=== PATIENT | female | born 1975 | race American Indian/Alaskan Native ===

== ENCOUNTER 2017-05-25 14:39 | Emergency (ER) | payer OTHER ==
[2017-05-25] MEDS ORDERED: MOTRIN PO ONE (18:43)
[2017-05-25] MEDS ORDERED: MOTRIN ONE (18:43)
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
[2017-05-25 20:59] VITALS: BP 143/89
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
== END 2017-05-25 20:57 | disposition home or self-care (01) ==
LOC: ED 14:39
DX: M79.1 Myalgia (principal); M25.511 Pain in right shoulder; M25.512 Pain in left shoulder; M54.5 Low back pain; I10 Essential (primary) hypertension
CPT/HCPCS: 72040

== ENCOUNTER 2021-02-23 08:06 | Emergency (ER) | payer SELFPAY ==
--- NOTE | 2021-02-23 12:19 | Emergency Department Report ---
- General Chief Complaint: Sore Throat Stated Complaint: SEVERE SORE THROAT Time Seen by Provider: 02/23/21 11:25 Source: patient Mode of arrival: Ambulatory Limitations: No Limitations - History of Present Illness Initial Comments: Patient is a 45-year-old female presents emergency room with complaints of a sore throat that began 2 days ago. She has associated ear pressure and dry cough. She denies any fever, vomiting, diarrhea, shortness of breath, chest pain. She has been fully vaccinated for COVID-19. She denies any known sick contacts or recent travel. Past medical history of hypertension. Allergy to codeine. - Related Data Home Medications Medication Instructions Recorded Confirmed Last Taken ALPRAZolam [Xanax] 0.5 mg PO HS 05/13/13 09/15/19 Unknown Ergocalciferol [Vitamin D2] 5,000 unit PO DAILY 09/15/19 09/15/19 Unknown Ferrous Sulfate [Feosol 325 MG tab] 325 mg PO DAILY 09/15/19 09/15/19 Unknown Vilazodone HCl [Viibryd] 40 mg PO DAILY 09/15/19 09/15/19 Unknown hydrALAZINE [Apresoline] 25 mg PO DAILY 09/15/19 09/15/19 Unknown hydroCHLOROthiazide [HCTZ] 25 mg PO DAILY 09/15/19 09/15/19 Unknown Previous Rx's Medication Instructions Recorded Last Taken Type Benzonatate [Tessalon Perles] 100 mg PO Q8HR PRN #12 capsule 02/23/21 Unknown Rx Nystas/Diphen/Xyl Visc/Mylanta 30 ml MM Q4H PRN #300 ml 02/23/21 Unknown Rx [Magic Mouthwash] guaiFENesin ER [Mucinex ER] 600 mg PO Q12H #14 tablet.er 02/23/21 Unknown Rx Allergies Allergy/AdvReac Type Severity Reaction Status Date / Time codeine Allergy Hallucinati Verified 09/15/19 17:09 ons ED Review of Systems ROS: Stated complaint: SEVERE SORE THROAT Other details as noted in HPI Comment: All other systems reviewed and negative ED Past Medical Hx - Past Medical History Hx Hypertension: Yes (x 2yrs) Hx GERD: Yes Hx Sickle Cell Disease: Yes (Trait only) Hx Psychiatric Treatment: Yes (anxiety,depression) - Social History Smoking Status: Never Smoker - Medications Home Medications: Home Medications Medication Instructions Recorded Confirmed Last Taken Type ALPRAZolam [Xanax] 0.5 mg PO HS 05/13/13 09/15/19 Unknown History Ergocalciferol [Vitamin D2] 5,000 unit PO DAILY 09/15/19 09/15/19 Unknown History Ferrous Sulfate [Feosol 325 MG tab] 325 mg PO DAILY 09/15/19 09/15/19 Unknown History Vilazodone HCl [Viibryd] 40 mg PO DAILY 09/15/19 09/15/19 Unknown History hydrALAZINE [Apresoline] 25 mg PO DAILY 09/15/19 09/15/19 Unknown History hydroCHLOROthiazide [HCTZ] 25 mg PO DAILY 09/15/19 09/15/19 Unknown History Benzonatate [Tessalon Perles] 100 mg PO Q8HR PRN #12 capsule 02/23/21 Unknown Rx Nystas/Diphen/Xyl Visc/Mylanta 30 ml MM Q4H PRN #300 ml 02/23/21 Unknown Rx [Magic Mouthwash] guaiFENesin ER [Mucinex ER] 600 mg PO Q12H #14 tablet.er 02/23/21 Unknown Rx ED Physical Exam - General Limitations: No Limitations General appearance: alert, in no apparent distress - Head Head exam: Present: atraumatic, normocephalic - Eye Eye exam: Present: normal appearance - ENT ENT exam: Present: normal orophraynx, mucous membranes moist, TM's normal bilaterally, normal external ear exam, other (no tonsillar hypertrophy or exudates, uvula is midline, no uvular edema or deviation, no trismus, no tongue elevation, no muffled voice, no submandibular edema) - Respiratory Respiratory exam: Present: normal lung sounds bilaterally. Absent: respiratory distress, wheezes, rales, rhonchi, stridor, chest wall tenderness, accessory muscle use, decreased breath sounds, prolonged expiratory - Cardiovascular Cardiovascular Exam: Present: regular rate, normal rhythm, normal heart sounds. Absent: systolic murmur, diastolic murmur, rubs, gallop - Neurological Exam Neurological exam: Present: alert, oriented X3 - Psychiatric Psychiatric exam: Present: normal affect, normal mood - Skin Skin exam: Present: warm, dry, intact ED Course Vital Signs 02/23/21 12:31 Temperature 98.4 F Pulse Rate 87 Respiratory 18 Rate Blood Pressure 177/107 [Right] O2 Sat by Pulse 99 Oximetry ED Medical Decision Making - Medical Decision Making Patient is a 45-year-old female presents emergency room with complaints of a sore throat that began 2 days ago. She has associated ear pressure and dry cough. She denies any fever, vomiting, diarrhea, shortness of breath, chest pain. She has been fully vaccinated for COVID-19. She denies any known sick contacts or recent travel. Past medical history of hypertension. Allergy to codeine. Vitals with elevated blood pressure, otherwise normal, no hypoxia, no fever, no tachycardia. Discussed elevation in blood pressure with patient and the importance of lifestyle modifications and following up with her primary care doctor for reevaluation. On exam no tonsillar hypertrophy or exudates, uvula is midline, no uvular edema or deviation, no trismus, no tongue elevation, no muffled voice, no submandibular edema, breath sounds are clear bilaterally, no wheezing, no rales, no rhonchi. Rapid strep is negative. Symptoms likely related to URI. Discussed supportive care and symptomatic treatment with patient and the importance of oral hydration. Advised patient to please take medication as prescribed as needed. Increase your fluid intake for the next several days. Follow-up with your primary care doctor. Recommend outpatient COVID-19 testing and if positive please follow CDC guidelines regarding quarantine. Return to emergency room for any new or worsening symptoms. Critical care attestation.: If time is entered above; I have spent that time in minutes in the direct care of this critically ill patient, excluding procedure time. ED Disposition Clinical Impression: URI (upper respiratory infection) Qualifiers: URI type: unspecified URI Qualified Code(s): J06.9 - Acute upper respiratory infection, unspecified Disposition: 01 HOME / SELF CARE / HOMELESS Is pt being admited?: No Does the pt Need Aspirin: No Condition: Stable Instructions: Viral Respiratory Infection Additional Instructions: please take medication as prescribed as needed. Increase your fluid intake for the next several days. Follow-up with your primary care doctor. Recommend outpatient COVID-19 testing and if positive please follow CDC guidelines regarding quarantine. Return to emergency room for any new or worsening symptoms. Prescriptions: Nystas/Diphen/Xyl Visc/Mylanta [Magic Mouthwash] 30 ml MM Q4H PRN #300 ml PRN Reason: sore throat guaiFENesin ER [Mucinex ER] 600 mg PO Q12H #14 tablet.er Benzonatate [Tessalon Perles] 100 mg PO Q8HR PRN #12 capsule PRN Reason: cough Referrals: PRIMARY CARE,MD [Primary Care Provider] - 3-5 Days Time of Disposition: 12:20 Print Language: SPANISH
[2021-02-23 12:32] VITALS: BP 177/107
== END 2021-02-23 12:32 | disposition home or self-care (01) ==
LOC: ED 08:06
DX: J06.9 Acute upper respiratory infection, unspecified (principal); I10 Essential (primary) hypertension; K21.9 Gastro-esophageal reflux disease without esophagitis; F41.9 Anxiety disorder, unspecified; F32.9 Major depressive disorder, single episode, unspecified; Z88.5 Allergy status to narcotic agent; Z79.899 Other long term (current) drug therapy
CPT/HCPCS: 87116; 87430; 99283